=== PATIENT | female | born 1965 | race Caucasian/White ===

== ENCOUNTER 2021-08-06 12:32 | Outpatient (CLI) | payer OTHER | END 2021-08-06 12:57 | disposition home or self-care (01) | LOC: MAMO-SONO 12:32 → EDBD 12:32 → MAMO-SONO 12:57 | PROVIDERS: ATTEND Specialist | DX: N61.0 Mastitis without abscess (principal) ==

== ENCOUNTER → 2021-11-22 | Outpatient (CLI) | payer OTHER | END | disposition home or self-care (01) | LOC: SONOGRAMA 11:00 | PROVIDERS: ATTEND Specialist | DX: N61.0 Mastitis without abscess (principal) ==